=== PATIENT | female | born 1955 | race Caucasian/White ===

== ENCOUNTER → 2017-01-12 | Outpatient (CLI) | payer OTHER ==
[~2017-01-12] MED LIST: ALBUTEROL NEBULIZER INH; AMLODIPINE BESYL5 MG PO; AROMASIN25 MG PO; CALCIUM + D 6001 TA1 PO; CALCIUM 500+D C1 TAB PO; CALCIUM D PO; CETIRIZINE PO; COMBIVENT INHALER INH; COMBIVENT U/D3 M2 INH; COSOPT EYE DROPS5 ML; DALIRESP500 MCG PO; DESYREL150 M1 PO; DORZOLAMIDE-TIMOLOL OS; DOXYCYCLINE MO100 MG PO; DULERA INHALER INH; EXEMESTANE PO; EXEMESTANE25 MG PO; FUROSEMIDE PO; HYDROMET SYRUP480 ML PO; K-DUR10 MEQ PO; KLOR-CON PO; LASIX PO; LOSARTAN POTASS25 MG PO; LOSARTAN POTASSIUM PO; MEDROL DOSEPAK4 MG PO; MOBIC PO; MONTELUKAST PO; MONTELUKAST SOD10 MG PO; NORVASC PO; POTASSIUM CL PO; PRAVASTATIN PO; PRAVASTATIN SOD40 MG PO; PREDNISONE PO; PREDNISONE10 MG PO; PREVASTATIN PO; PROVENTIL0.83 MG/ML; RESTASIS OU; RESTASIS32 EA; SEE LIST; SPIRIVA INH; SPIRIVA18 MCG PO; SYMBICORT INH; TESSALON PERLE100 M1 PO; TRAZODONE PO; VENTOLIN INHALER INH; VITAMIN; ZITHROMAX PO; ZYRTEC PO; ZYRTEC10 M1 PO; [UNRECOGNIZED DRUG - OTHER]; [UNRECOGNIZED DRUG - OTHER] INH
== END | disposition home or self-care (01) ==
LOC: CNUC 08:09
DX: R07.9 Chest pain, unspecified (principal)
CPT/HCPCS: 93306

== ENCOUNTER 2017-05-03 15:24 | Emergency (ER) | payer OTHER ==
[~2017-05-03 15:24] MED LIST changes: -SEE LIST
[2017-05-03] MEDS ORDERED: SEE LIST (15:41)
== END 2017-05-03 16:46 | disposition home or self-care (01) ==
LOC: SED 15:24
DX: H60.11 Cellulitis of right external ear (principal); J44.9 Chronic obstructive pulmonary disease, unspecified; D86.9 Sarcoidosis, unspecified; Z86.79 Personal history of other diseases of the circulatory system; Z88.0 Allergy status to penicillin; Z88.1 Allergy status to other antibiotic agents
CPT/HCPCS: 99282

== ENCOUNTER 2017-05-03 20:09 | Emergency (ER) | payer OTHER ==
[~2017-05-03 20:09] MED LIST changes: +SEE LIST
== END 2017-05-03 21:25 | disposition home or self-care (01) ==
LOC: SED 20:09
DX: S61.412A Laceration without foreign body of left hand, initial encounter (principal); Z88.0 Allergy status to penicillin; Z88.1 Allergy status to other antibiotic agents; I10 Essential (primary) hypertension; W26.0XXA Contact with knife, initial encounter; Y92.9 Unspecified place or not applicable
CPT/HCPCS: 12002; 99283

== ENCOUNTER 2017-05-11 14:31 | Emergency (ER) | payer OTHER | END 2017-05-11 16:15 | disposition home or self-care (01) | LOC: SED 14:31 | DX: S61.411D Laceration without foreign body of right hand, subsequent encounter (principal); J44.9 Chronic obstructive pulmonary disease, unspecified; Z88.0 Allergy status to penicillin; Z88.2 Allergy status to sulfonamides; Z88.8 Allergy status to other drugs, medicaments and biological substances | CPT/HCPCS: 99281 ==

== ENCOUNTER → 2017-06-25 | Outpatient (CLI) | payer OTHER ==
--- NOTE | ~2017-06-25 | CT4 ---
[facility] A Service of [facility] RADIOLOGY TEXT RESULTS PATIENT: MARTY ALBRECHT LOCATION: [facility] : 59 UNIT #: [id number] AGE: [address]: David Birch MD SEX: F ORDER DR: [id number] [facility] [address] [place], [place] [address] [id number] O MR#: [id number] Acc #: [id number] NAME: MARTY ALBRECHT : 1955 SEX: F STUDY DATE/TIME: 06/25/2017 12:56 UNIT: [facility] ROOM: STUDY DESCRIPTION: CT Abd and Pelv Wo Cont Attending Physician: David Birch M.D. Referring Physician: David Birch M.D. Ordering Physician: David Birch M.D. Primary Care Physician: Nico Warren M.D. MEDICAL IMAGING REPORT This report is preliminary unless electronic signature is present EXAM CT abdomen and pelvis without contrast INDICATIONS Epigastric and mid abdominal pain for the past month. PROCEDURE Unenhanced CT of the abdomen and pelvis. This CT exam was performed with one or more of the following radiation dose reduction techniques: automatic control, adjustment of mA and/or kV according to patient size, and iterative reconstruction. COMPARISON 12/05/2016 FINDINGS ABDOMEN WITHOUT CONTRAST: The liver, spleen, adrenal, pancreas gallbladder unremarkable. There are small nonobstructing calculi in the right kidney. Bowel loops are nondilated. There are uncomplicated diverticula in the left side of the colon. PELVIS WITHOUT CONTRAST: No pelvic mass or fluid. No aggressive appearing bone lesion. IMPRESSION No acute findings in the abdomen or pelvis Dictated by... Jaylen Ramirez M.D. THIS IS AN ELECTRONICALLY VERIFIED REPORT Jaylen Ramirez M.D. at 06/29/2017 11:08 AM EED/rnr [facility] A Service of [facility] RADIOLOGY TEXT RESULTS PATIENT: MARTY ALBRECHT LOCATION: [facility] : 59 UNIT #: [id number] AGE: [address]: David Birch MD SEX: F ORDER DR: TD: 06/25/2017 17:56 JOB #: [id number] MEDICAL IMAGING REPORT Page 1 of 1 COPY
== END | disposition home or self-care (01) ==
LOC: CCAT 11:28
DX: R10.13 Epigastric pain (principal)
CPT/HCPCS: 74176